=== PATIENT | female | born 1955 ===

== ENCOUNTER 2017-04-01 18:07 | Emergency (ER) | payer OTHER ==
[2017-04-01 18:14] VITALS: BP 164/51; PULSE 77; RESP 16; TEMP 99; O2SAT 97
--- NOTE | 2017-04-01 18:30 | ED PDOC ---
HPI: Skin/Bite Injury Time Seen by Provider: 04/01/17 18:22 Chief Complaint (Nursing): Abnormal Skin Integrity Chief Complaint (Provider): Rash History Per: Patient History/Exam Limitations: no limitations Onset/Duration Of Symptoms: Days (x 2 weeks) Current Symptoms Are (Timing): Still Present Quality Of Symptoms: Itching, Other ("burning") Additional Complaint(s): Shayla Yeager is a 62 year old female, with no past medical history, who presents to the emergency department complaining of rash to face and neck associated with itchiness onset for 4 months. Patient reports she saw a java development manager who performed a biopsy in December but states she is not feeling better. Patient is using hydroquinone, clotrimazole, and hydrocortisone with minimal relief. Pt saw her PMD 2 weeks ago and is seeing java development manager for f/u on 04/08. PMD: Jorge Ro Past Medical History Reviewed: Historical Data, Nursing Documentation, Vital Signs Vital Signs: Last Vital Signs Temp 99.0 F 04/01/17 18:11 Pulse 77 04/01/17 18:11 Resp 16 04/01/17 18:11 BP 164/51 H 04/01/17 18:11 Pulse Ox 97 04/01/17 18:40 - Medical History PMH: HTN - Surgical History Surgical History: No Surg Hx - Family History Family History: States: Unknown Family Hx - Living Arrangements Living Arrangements: With Family - Social History Current smoker - smoking cessation education provided: No Alcohol: None Drugs: Denies - Home Medications Home Medications: Ambulatory Orders Medication Instructions Recorded Cephalexin [Keflex] 250 mg PO BID #6 cap 04/22/14 Ibuprofen [Motrin] 600 mg PO Q6 #20 tab 04/22/14 predniSONE [predniSONE Tab] 20 mg PO DAILY #12 tab 04/01/17 - Allergies Allergies/Adverse Reactions: Allergies Allergy/AdvReac Type Severity Reaction Status Date / Time No Known Allergies Allergy Verified 04/01/17 18:11 Review of Systems ROS Statement: Except As Marked, All Systems Reviewed And Found Negative Constitutional: Negative for: Fever, Chills Skin: Positive for: Rash (itchy rash to the face and body) Physical Exam - Reviewed Nursing Documentation Reviewed: Yes Vital Signs Reviewed: Yes - Physical Exam Appears: Positive for: Well, Non-toxic, No Acute Distress Head Exam: Positive for: ATRAUMATIC, NORMAL INSPECTION, NORMOCEPHALIC Skin: Positive for: Normal Color, Rash (Dry, erythematous on the face and neck, (+) blanching ) Eye Exam: Positive for: Normal appearance ENT: Positive for: Normal ENT Inspection Neck: Positive for: Normal, Painless ROM Cardiovascular/Chest: Positive for: Regular Rate, Rhythm Respiratory: Positive for: Normal Breath Sounds. Negative for: Respiratory Distress Neurologic/Psych: Positive for: Alert, Oriented - ECG O2 Sat by Pulse Oximetry: 97 (RA) Pulse Ox Interpretation: Normal Medical Decision Making Medical Decision Making: Initial Impression: Skin Rash -No fungus on biopsy report. Instructed patient to stop fungal cream and given oral steroids. Scribe Attestation: Documented by Ben Tan, acting as a scribe for Tari ROSEN. Provider Scribe Attestation: All medical record entries made by the Scribe were at my direction and personally dictated by me. I have reviewed the chart and agree that the record accurately reflects my personal performance of the history, physical exam, medical decision making, and the department course for this patient. I have also personally directed, reviewed, and agree with the discharge instructions and disposition. Disposition - Clinical Impression Clinical Impression: Rash - Patient ED Disposition Is Patient to be Admitted: No Counseled Patient/Family Regarding: Diagnosis, Need For Followup, Rx Given - Disposition Disposition: Routine/Home Disposition Time: 19:08 Condition: GOOD Prescriptions: predniSONE [predniSONE Tab] 20 mg PO DAILY #12 tab Instructions: Dermatitis (ED)
== END 2017-04-01 19:17 | disposition home or self-care (01) ==
LOC: H.ER 18:07
DX: R21 Rash and other nonspecific skin eruption (principal); I10 Essential (primary) hypertension